=== PATIENT | female | born 1970 ===

== ENCOUNTER → 2022-02-04 07:33 | Outpatient (CLI) | payer OTHER, SELFPAY ==
--- NOTE | ~2022-02-04 | MR_ITS ---
EXAMINATION: MR shoulder LT wo con DATE: 02/04/2022 08:16 INDICATION: Shoulder pain and limited range of motion. Finger numbness. TECHNIQUE: Magnetic resonance imaging (MRI) of the left shoulder was performed without intravenous co ntrast. Sequences included axial PD-weighted FS FSE, coronal oblique PD-weighted FS FSE and T2-weight ed FS FSE, and sagittal oblique T2-weighted FS FSE and T1-weighted FSE. COMPARISON: None. FINDINGS: Coracoacromial arch: Flat acromial undersurface without downsloping. Minimal acromial tip enthesopathy. Subacromial narrow ing. Rotator cuff: Bursal sided fraying. No focal tear. Abnormal signal and thickening in the distal superior cuff. Biceps tendon and glenoid labrum: Mild glenohumeral degenerative change. Labrum and biceps tendon are intact. Fluid: Moderate subacromial subdeltoid fluid. Bones/cartilage: No suspicious focal or diffuse marrow signal IMPRESSION: 1. Subacromial/subdeltoid bursitis. 2. Bursal sided fraying distal rotator cuff tendinopathy. Reviewed, dictated and finalized at location K.
== END ==
PROVIDERS: PCP Family Medicine; Visit Provider Orthopaedic Surgery
DX: M25.512 Pain in left shoulder (principal); G89.29 Other chronic pain; M75.52 Bursitis of left shoulder
CPT/HCPCS: 73221